=== PATIENT | female | born 1980 | race American Indian/Alaskan Native ===

== ENCOUNTER 2016-10-19 05:57 | Inpatient (IN) | payer OTHER, MEDICAID ==
[2016-10-19] MEDS ORDERED: Lidocaine 1% 30 ML SDV INJECT PRN (05:59)
[2016-10-19] MEDS ORDERED: Nalbuphine 10 MG/1 ML Vial IM PRN (05:59)
[2016-10-19] MEDS ORDERED: Carboprost Tromethamine 250 MCG/1 ML Amp IM PRN (05:59)
[2016-10-19] MEDS ORDERED: Lactated Ringers 500 ML IV ONE (05:59)
[2016-10-19] MEDS ORDERED: Methylergonovine 0.2 MG/1 ML Amp IM PRN (05:59)
[2016-10-19] MEDS ORDERED: Sodium Chloride 0.9% 10 ML Syringe FLUSH PRN (05:59)
[2016-10-19] MEDS ORDERED: Misoprostol 400 MCG (4 X 100 MCG TAB) RECTAL PRN (05:59)
[2016-10-19] MEDS ORDERED: Ondansetron 4 MG/2 ML SDV IV PRN (05:59)
[2016-10-19] MEDS ORDERED: Lactated Ringers 1,000 ML IV SCH (06:00)
[2016-10-19] MEDS ORDERED: Acetaminophen 325 MG Tab PO PRN (06:04)
[2016-10-19] MEDS ORDERED: Misoprostol 25 MCG (1/4 of 100 MCG) Tab VAG PRN (06:04)
[2016-10-19] MEDS ORDERED: Oxytocin/Normal Saline 30 UNIT/500 ML BAG IV SCH (06:15)
--- NOTE | 2016-10-19 10:58 | HP ---
CHIEF COMPLAINT: IOL due to GDM with medications for control. HISTORY OF PRESENT ILLNESS: Good movement. No leakage or vaginal bleeding. No symptoms of preeclampsia. Has not checked her sugars except a few times this past week and reports they were at goal. Also has not been taking her glyburide this past week either. No other acute concerns. HISTORY: 1. Dating of this is based on last menstrual period of 01/17/2016 and accurate within a couple of days. This was verified with an 11 week quick look ultrasound and consistent. 2. #5, delivered 05/28/2015, at 37 weeks 2 days gestation, female infant, vaginally, living, named Tatum, weighing 2815 g, 2 hours and 45 minutes of stage I, 1 minute of stage II, scores of 6 and 7. She was induced with low-dose Pitocin for 6 hours, and then once it was increased and artificial rupture membranes performed, she progressed rapidly. She had a category II tracing. Baby was transferred to NICU for respiratory distress. 3. #4, delivered 01/12/2013, 39 weeks 2 days gestation, female infant, delivered vaginally, named Lala, weight 3229 g, Apgars of 8 and 9, gestational diabetes and on metformin. 4. #3, delivered 10/01/2008 at 41 weeks gestation, male infant, delivered vaginally, named Kalia, weight 3232 g. She had no anesthesia, was in stage I labor for 6 hours. She was induced for post dates and treated for group B strep. She did fail her 1 hour glucose tolerance test, but passed her 3 hour. 5. #2 is a spontaneous in 2006 at 8 weeks gestation, resolved spontaneously. 6. #1, delivered 10/04/2015 at 40 weeks and 0 days' gestation. Her name is Varsha, weight 3147 g. She is female and mother with only labor for about 4 hours. LAB TESTS: Show blood type O positive. Antibody screen negative. Rubella immune. RPR nonreactive. Hepatitis B negative. HIV negative. Gonorrhea chlamydia negative. TSH normal. Hepatitis C negative. Wet prep, only positive for yeast, which was treated. Glucose fasting was 86, however her 1 hour glucose tolerance test was 205. Group B strep negative. PAST MEDICAL HISTORY: Gestational diabetes, late menarche at age 17 and prior abnormal Pap smear with colposcopy performed, but no treatment needed and she has some body piercings. No history of any IV drug use or transfusions. PAST SURGICAL HISTORY: Negative. FAMILY HISTORY: Mother Janell with thyroid disease and cervical cancer. Father's history is unknown. Two brothers, Jairo has type 2 diabetes and has had multiple births with his children believed to be from his 's side of the family, brother Kleber has no known health problems. Maternal grandparents are . Maternal uncles are . One paternal uncle has prostate cancer. The other paternal uncle has pancreatic cancer. No history of any defects, anesthesia problems, bleeding, or clotting disorders. SOCIAL HISTORY: She is a nonsmoker and does not use any alcohol. Lives with her boyfriend, Lamont Shook. They have 4 children together and he has 2 from a previous relationship. 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 Lamont owns grocery store and gas station. His father did from stage IV cancer of unknown origin. ALLERGIES: No known drug allergies. MEDICATIONS: vitamin 1 daily and she is supposed to be taking glyburide 5 mg twice daily, which she has not taken in the past week. REVIEW OF SYSTEMS: No headaches, blurry vision, chest pain, shortness of breath, right upper quadrant pain, nausea, vomiting, numbness, or tingling. No vaginal bleeding or leakage of fluid. Having good movement. Reports that her fasting blood sugars have been in the 80s when she checks them and on Tuesday, 4 days ago, she did check two sugars after eating and both of them were less than 120. So she feels she has had good diabetic control. She has not reported any symptoms of polyuria, polydipsia, or polyphagia. PHYSICAL EXAMINATION: Vital Signs: BP 110/65, Pulse 67, Temp 97.5, Resp 18 HEENT: Unremarkable. Neck: Supple without adenopathy. Heart: Regular without obvious murmur. Lungs: Clear to auscultation bilaterally. Abdomen: Soft, gravid, and nontender. Fetus is palpating head down. Extremities: No edema, erythema, or tenderness. Cervix: Cervix is 4 cm dilated, 50% effaced, -3 station. Soft in consistency. Neurological: No focal deficits. ASSESSMENT: 1. A 39 and 3/7th weeks intrauterine . 2. Gestational diabetes with reported diet control, however the patient was supposed to be on medications. 3. History of precipitous delivery. 4. Advanced maternal age. 5. Grandmultiparous PLAN: The patient will be admitted to the hospital and initial labs drawn. We will get the Pitocin started before we perform artificial rupture and anticipate delivery sometime later on today or in the slide forming machine tender hours. The patient's questions have been answered and she is comfortable with the plan as outlined. [facility] /[id number] MTDD
--- NOTE | 2016-10-19 13:05 | PN ---
DATE: 10/19/2016 SUBJECTIVE: The patient is doing well, feeling increased force and frequency of the contractions with the Pitocin and starting to breathe through them now. Agreeable to artificial rupture of membranes to continue with her labor induction and delivery. Denies other acute concerns. She has not had any spontaneous leakage or bleeding. movement continues to be good. OBJECTIVE: Blood pressure 108/56, pulse of 72, respiratory rate of 18. Cervix re-examined. She is 6 cm dilated, 60% effaced, -2 station. Bag of water is intact and ruptured with amniotomy hook without complication. Return of clear fluid was noted, and the patient tolerated well. ASSESSMENT: 1. A 39 and 3/7th weeks. 2. Gestational diabetes with diet control. 3. History of precipitous delivery. 4. Advanced maternal age. PLAN: Continue with current management using Pitocin along with AROM for induction of labor. We will continue active labor management as appropriate. [facility] /[id number] MTDJanna
[2016-10-19] MEDS ORDERED: Benzocaine/Menthol 20%-0.5% Spray 56 GM Canister TOP PRN (14:26)
[2016-10-19] MEDS ORDERED: Simethicone 80 MG Tab.Chew PO PRN (14:26)
[2016-10-19] MEDS: Ibuprofen 800 MG Tab PO PRN (15:29)
[2016-10-19] MEDS: Ferrous Sulfate 325 MG Tab PO SCH (18:43)
[2016-10-19] MEDS ORDERED: Acetaminophen/HYDROcodone 325-5 MG Tab PO PRN (20:59)
[2016-10-19] MEDS: Acetaminophen/HYDROcodone 325-10 MG Tab PO PRN (21:11)
[2016-10-20] MEDS: Ibuprofen 800 MG Tab PO PRN ×3 (01:34→17:33)
[2016-10-20] MEDS: Acetaminophen/HYDROcodone 325-10 MG Tab PO PRN ×4 (01:34→23:04)
--- NOTE | 2016-10-20 04:02 | DEL ---
DATE: 10/19/2016 PRE-PROCEDURE DIAGNOSES: 1. A 39-3/7th weeks' . 2. Gestational diabetes, diet controlled. 3. History of precipitous delivery. POSTPROCEDURE DIAGNOSES: 1. A 39-3/7th weeks' . 2. Gestational diabetes, diet controlled. 3. History of precipitous delivery. 4. Delivery of a viable male . 5. Repair of first-degree superficial laceration. BRIEF HISTORY: The patient is a 35-year-old female, who actually turns 36 tomorrow, presented to Labor and Delivery this morning for induction of labor because of gestational diabetes which was supposed to be controlled on medications, which she has not been taking, nor she had been adequately checking her sugars the past week, but reports that she does have diet control at this time. She has a history of fairly fast labors and cervix was favorable. Please see admission history and physical for full details. Pitocin was initiated and when we had a nice regular contraction pattern, I came over and artificial rupture of membranes was performed with return of clear fluid. She progressed nicely through labor and delivery itself. Stage I labor was 5 hours or less. She pushed for about 10 minutes, and placenta delivered within about 4 minutes. The patient tolerated all of this well without any anesthesia other than local for the perineal repair. DETAILS: In the dorsal lithotomy position, the patient delivered a viable male infant in OA position over intact perineum. After the was delivered, baby was dried and stimulated, and gentle suctioning of the mouth and nose was carried out. Baby was then placed up on mother's abdomen and after approximately 45 seconds of delayed time, the cord was doubly clamped and then cut, and cord blood sample then obtained and handed off to the awaiting nurse. Placenta was then delivered by gentle cord traction and concomitant uterine massage. A small first-degree laceration was repaired with 3-0 Vicryl under 1% lidocaine in the usual fashion and without complications. No other lacerations or injuries were seen. ESTIMATED BLOOD LOSS: Less than 100 mL. COMPLICATIONS: None. DISPOSITION: Mother and baby to stay at the room at this time to initiate bonding and [id number]. [facility] /[id number] ANGELINA
--- NOTE | 2016-10-20 08:47 | PN ---
DATE: 10/20/2016 SUBJECTIVE: day #1, status post uncomplicated vaginal delivery and reports that she is doing well. She is ambulating, tolerating regular diet, passing flatus, not yet had a bowel movement, and voiding without difficulty. Reports vaginal bleeding. It is heavier than with her last delivery but not unreasonable. No clots, no fever chills, or foul-smelling drainage or discharge. No chest pain or shortness of breath. Overall reports doing quite well and only having a little bit of soreness. No other acute concerns and is bottle feeding her baby. OBJECTIVE: General: A well-appearing 36-year-old female, in no apparent distress. Vital Signs: Temperature is 97.2, pulse 78, blood pressure 108/64, respiratory rate of 16, and O2 saturation is 99% on room air. Heart: Regular without obvious murmur. Lungs: Clear to auscultation bilaterally. Abdomen: Soft and nontender. Positive bowel sounds and fundus is firm below the umbilicus. Extremities: No edema, erythema, or tenderness noted. LABORATORY DATA: Admission hemoglobin 9.3. Today's hemoglobin is 8.8. White cell count normal at 9.4, platelets are 271. Glucose on admission was 84. Intrapartum was 71. Last night was 71. No further glucose checks necessary. ASSESSMENT: 1. Status post vaginal delivery with first-degree laceration repair. The patient now 6, para 5-0-1-5. 2. History of gestational diabetes, medication and dietary control suspected but not verified with Accu-Cheks. 3. History of precipitous labors and deliveries. 4. Grand multiparity. 5. Advanced maternal age. PLAN: Continue routine cares and anticipate discharge home tomorrow. The patient continues to do quite well, and will notify me if any concerns arise. [facility] /[id number]
[2016-10-20] MEDS: Acetaminophen 325 MG Tab PO PRN ×2 (09:07→14:43)
[2016-10-20] MEDS: Prenatal Multivitamin with Calcium/Folic Acid/Iron Tab PO SCH (09:07)
[2016-10-20] MEDS: Ferrous Sulfate 325 MG Tab PO SCH ×2 (09:07→17:33)
[2016-10-20] MEDS: Docusate Sodium 100 MG Cap PO PRN ×2 (09:08→19:08)
[2016-10-21] MEDS: Ibuprofen 800 MG Tab PO PRN ×2 (01:10→08:29)
[2016-10-21] MEDS: Acetaminophen/HYDROcodone 325-10 MG Tab PO PRN (05:32)
[2016-10-21 08:00] VITALS: BP 99/64
[2016-10-21] MEDS: Prenatal Multivitamin with Calcium/Folic Acid/Iron Tab PO SCH (08:29)
[2016-10-21] MEDS: Acetaminophen 325 MG Tab PO PRN (08:29)
[2016-10-21] MEDS: Ferrous Sulfate 325 MG Tab PO SCH (08:29)
[2016-10-21] MEDS: Docusate Sodium 100 MG Cap PO PRN (08:29)
--- NOTE | 2016-10-25 07:04 | DISCH ---
ADMISSION DIAGNOSES: 1. 6, para 4-0-1-4. 2. A 39-3/7th weeks gestation by last menstrual period. 3. Advanced maternal age. 4. Gestational diabetes, combination of medications and diet control. 5. History of precipitous labors. 6. Grand multiparity. 7. Anemia of . DISCHARGE DIAGNOSES: 1. 6, now para 5-0-1-5. 2. A 39-3/7th weeks gestation by last menstrual period. 3. Advanced maternal age. 4. Gestational diabetes, combination of medications and diet control. 5. History of precipitous labors. 6. Grand multiparity. 7. Status post spontaneous vaginal delivery with first-degree laceration repair without repair. 8. Anemia of and of blood loss. BRIEF HISTORY: A 35-year-old female, admitted to the hospital for induction of labor because of medication-requiring gestational diabetes, and inadequate evidence of control and not taking her medications for the week prior. Cervix was already well dilated, so induction performed with artificial rupture and she continued through stage I in less than 5 hours. After that, only pushed for about 10 minutes and had a successful spontaneous vaginal delivery without any anesthesia; however, had a first-degree laceration, which was repaired with local injection of lidocaine. The patient tolerated well and has been doing well since time of delivery. See admission history and physical and delivery note for full details. HOSPITAL COURSE: Good. She has been ambulating, tolerating regular diet. The glucose checks we have done have been within normal limits and she has not required any medications for those. Bleeding has been well controlled. No symptoms of preeclampsia. No signs or symptoms of infection. Bottle feeding her baby and ready to go home. DISCHARGE CONDITION: Good. PHYSICAL EXAMINATION: Vital Signs: Temperature 97.5, pulse 76, blood pressure 99/64, respiratory rate of 16, O2 saturations 96% on room air. Heart: Regular without murmur. Lungs: Clear bilaterally. Abdomen: Soft, nontender. Fundus is firm and below the umbilicus. Extremities: No edema, erythema, or tenderness noted. LABORATORY DATA: Admission hemoglobin of 9.3, platelets of 290. Discharge hemoglobin 8.8, platelets of 271. DISPOSITION: Home with family. DISCHARGE MEDICATIONS: 1. Iron 325 mg twice daily. 2. Colace 100 mg twice daily. 3. Ibuprofen 800 mg every 8 hours as needed for pain. 4. Tylenol 650 mg every 6 hours as needed for pain. 5. Advised to also continue multivitamin 1 daily. FOLLOWUP: A 6-week visit will be planned. The patient should continue to check at least her fasting blood sugars intermittently and report those at her 6-week visit. DISCHARGE INSTRUCTIONS: Routine post-vaginal delivery instructions given. The patient also educated on the increased risk of developing overt diabetes for herself and for her children. Her questions were answered. She also understands to return if she has any problems with increased bleeding, foul- smelling drainage, discharge, pelvic pain, fever, chills, or any other concerns. [facility] /[id number] ANGELINA
== END 2016-10-21 10:20 | disposition home or self-care (01) | DRG 775 ==
LOC: DL.OB 08:16 → OBSVTOIN 14:03
PROVIDERS: ADMIT Family Medicine; ATTEND Family Medicine
PROC: 10E0XZZ Delivery of Products of Conception, External Approach (ICD-10-PCS; principal; 2016-10-19)
PROC: 0HQ9XZZ Repair Perineum Skin, External Approach (ICD-10-PCS; 2016-10-19)
PROC: 3E033VJ Introduction of Other Hormone into Peripheral Vein, Percutaneous Approach (ICD-10-PCS; 2016-10-19)
PROC: 10907ZC Drainage of Amniotic Fluid, Therapeutic from Products of Conception, Via Natural or Artificial Opening (ICD-10-PCS; 2016-10-19)
DX: O24.420 Gestational diabetes mellitus in childbirth, diet controlled (principal); Z3A.39 39 weeks gestation of pregnancy; Z37.0 Single live birth
CPT/HCPCS: 36415; 82947; 82962; 85027; A9270-GY; J2590; J7120

== ENCOUNTER 2018-10-06 13:15 | Outpatient (CLI) | payer BC ==
[2018-10-06 14:58] VITALS: BP 110/59; PULSE 68
== END 2018-10-06 14:57 | disposition home or self-care (01) ==
LOC: DL.US 13:15
PROVIDERS: ATTEND Family Medicine
DX: O09.292 Supervision of pregnancy with other poor reproductive or obstetric history, second trimester (principal); O09.42 Supervision of pregnancy with grand multiparity, second trimester; O09.522 Supervision of elderly multigravida, second trimester; O24.419 Gestational diabetes mellitus in pregnancy, unspecified control; Z3A.33 33 weeks gestation of pregnancy
CPT/HCPCS: 59025; 76819